=== PATIENT | male | born 2000 | race Caucasian/White ===

== ENCOUNTER 2019-05-13 16:12 | Outpatient (CLI) | payer OTHER ==
--- NOTE | 2019-05-13 17:55 | RAD ---
LEFT FOOT THREE VIEWS: 05/13/19 HISTORY: Foot pain. No history of injury. Joint spaces appear fairly well preserved. Small spur of the Achilles tendon insertion is noted. Ther e is some spurring along the dorsal side of the talus at the talonavicular joint. I do not see any de finite signs for coalition. No acute bony findings. IMPRESSION: Findings as noted above. POS: [facility]
== END 2019-05-13 16:13 | disposition home or self-care (01) ==
LOC: SCSRAD 16:12
PROVIDERS: ATTEND Family Medicine
DX: M79.672 Pain in left foot (principal); M77.52 Other enthesopathy of left foot and ankle